=== PATIENT | male | born 1980 | race Caucasian/White ===

== ENCOUNTER 2016-08-29 01:41 | Inpatient (IN) | payer OTHER ==
--- NOTE | 2016-08-29 03:11 | PDOC ---
History of Present Illness - History of Present Illness Initial Comments: 08/29/16 05:58 Patient is a 35 year old male with significant medical hx of psoriasis and recent colostomy bag placement who is presenting to the ED with abdominal pain and decreased colostomy output. The patient complains of epigastic pain, RUQ pain and LUQ pain radiating up into the chest. He reports some nausea and vomiting; the patient has been unable to keep any foods down tonight. Patient reports that at baseline he empties his bowels into the colostomy bag multiple times after seven pm. The patient reports that he did not empty into his colostomy bag tonight. The patient notes that he has been unable to pass gas. The patient came to the ED tonight for concern for obstruction. <Wendi Graves - Last Filed: 08/29/16 05:58> <Liz Dangelo - Last Filed: 08/31/16 01:40> - General Chief Complaint: Chest Pain Stated Complaint: CHEST PAIN Time Seen by Provider: 08/29/16 03:10 Past History <Wendi Graves - Last Filed: 08/29/16 05:58> - Past Medical History Other medical history: denies - Psycho/Social/Smoking Cessation Hx Suicidal Ideation: No Smoking History: Never smoked <Liz Dangelo - Last Filed: 08/31/16 01:40> - Past Medical History Allergies/Adverse Reactions: Allergies Allergy/AdvReac Type Severity Reaction Status Date / Time No Known Allergies Allergy Verified 08/29/16 01:46 Home Medications: Ambulatory Orders Apremilast [Otezla] 1 each PO BID 08/29/16 Review of Systems - Review of Systems Comments:: 08/29/16 06:06 CONSTITUTIONAL: Absent: fever, chills, diaphoresis, generalized weakness, malaise, loss of appetite HEENT: Absent: rhinorrhea, nasal congestion, throat pain, throat swelling, difficulty swallowing, mouth swelling, ear pain, eye pain, visual changes CARDIOVASCULAR: Absent: chest pain, syncope, palpitations, irregular heart rate, lightheadedness , peripheral edema RESPIRATORY: Absent: cough, shortness of breath, dyspnea with exertion, orthopnea, wheezing, stridor, hemoptysis GASTROINTESTINAL: Present: epigastric pain, RUQ pain, LUQ pain, nausea, vomiting Absent: abdominal distension, diarrhea, constipation, melena, hematochezia GENITOURINARY: Absent: dysuria, frequency, urgency, hesitancy, hematuria, flank pain, genital pain MUSCULOSKELETAL: Absent: myalgia, arthralgia, joint swelling SKIN: Absent: rash, itching, pallor HEMATOLOGIC/IMMUNOLOGIC: Absent: easy bleeding, easy bruising, lymphadenopathy, frequent infections ENDOCRINE: Absent: unexplained weight gain, unexplained weight loss, heat intolerance, cold intolerance NEUROLOGIC: Absent: headache, focal weakness or paresthesia, dizziness, unsteady gait, seizure, mental status changes, bladder or bowel incontinence. PSYCHIATRIC: Absent: anxiety, depression, suicidal or homicidal ideation, hallucinations <Wendi Graves - Last Filed: 08/29/16 05:58> *Physical Exam - Vital Signs Last Vital Signs Temp Pulse Resp BP Pulse Ox 98 F 66 18 141/82 100 08/29/16 01:43 08/29/16 01:43 08/29/16 01:43 08/29/16 01:43 08/29/16 01:43 - Physical Exam Comments: 08/29/16 06:07 GENERAL: Well developed, well nourished. Awake and alert. No acute distress. HEENT: Normocephalic, atraumatic. PERRLA, EOMI. No conjunctival pallor. Sclera are non- icteric. Moist mucous membranes. Oropharynx is clear. NECK: Supple. Full ROM. No JVD. Carotid pulses 2+ and symmetric, without bruits. No thyromegaly. No lymphadenopathy. CARDIOVASCULAR: Regular rate and rhythm. No murmurs, rubs, or gallops. Distal pulses are 2+ and symmetric. PULMONARY: No evidence of respiratory distress. Lungs clear to auscultation bilaterally. No wheezing, rales or rhonchi. ABDOMINAL: Empty colostomy bag RLQ. Soft. Non-tender. Non-distended. No rebound or guarding. No organomegaly. Normoactive bowel sounds. MUSCULOSKELETAL: Normal range of motion at all joints. No bony deformities or tenderness. No CVA tenderness. EXTREMITIES: No cyanosis. No clubbing. No edema. No calf tenderness. SKIN: Warm and dry. Normal capillary refill. No rashes. No jaundice. NEUROLOGICAL: Alert, awake, appropriate. Cranial nerves 2-12 intact. Normal speech. Toes are down-going bilaterally. Gait is normal without ataxia. PSYCHIATRIC: Cooperative. Good eye contact. Appropriate mood and affect. <Wendi Graves - Last Filed: 08/29/16 05:58> - Vital Signs Last Vital Signs Temp Pulse Resp BP Pulse Ox 98 F 66 18 141/82 100 08/29/16 01:43 08/29/16 01:43 08/29/16 01:43 08/29/16 01:43 08/29/16 01:43 <Liz Dangelo - Last Filed: 08/31/16 01:40> ED Treatment Course - LABORATORY CBC & Chemistry Diagram: 08/29/16 03:15 08/29/16 03:15 - ADDITIONAL ORDERS Additional order review: Laboratory Results 08/29/16 08/29/16 08/29/16 03:15 03:15 03:15 INR 1.39 H Sodium 143 Potassium 4.0 Chloride 104 Carbon Dioxide 27 Anion Gap 12 BUN 7 D Creatinine 0.8 D Creat Clearance w eGFR > 60 Random Glucose 173 H D Calcium 9.2 Total Bilirubin 1.7 H D AST 302 H D ALT 274 H D Alkaline Phosphatase 177 H D Total Protein 8.5 H Albumin 4.1 Total Amylase 58 Lipase 78 08/29/16 03:15 RBC 5.38 D MCV 91.2 MCHC 32.6 RDW 13.7 MPV 11.5 H Neutrophils % 86.9 H D Lymphocytes % 9.1 D Monocytes % 3.9 Eosinophils % 0.0 D Basophils % 0.1 - Medications Given in the ED: ED Medications Discontinued Medications Generic Name Dose Route Start Last Admin Trade Name Alyce PRN Reason Stop Dose Admin Morphine Sulfate 2 mg 08/29/16 04:19 08/29/16 04:39 Morphine Injection - IVPUSH 08/29/16 04:20 2 mg ONCE ONE Administration Ondansetron HCl 4 mg 08/29/16 04:40 08/29/16 04:40 Zofran Injection IVPUSH 08/29/16 04:41 4 mg NOW ONE Administration <Wendi Graves - Last Filed: 08/29/16 05:58> - LABORATORY CBC & Chemistry Diagram: 08/30/16 06:00 08/30/16 06:00 <Liz Dangelo - Last Filed: 08/31/16 01:40> Medical Decision Making - Medical Decision Making 08/29/16 06:54 PT HAD A LOOP COLOSTOMY PLACED ON 08/03/16, SECONDARY TO A COLO-VESICULAR FISTULA THAT HAD RANDOMLY FORMED; HE HAD PREVIOUSLY BEED IN [facility] WITH NO MEDICAL ISSUES OR DIAGNOSES. NOW HE COMES WITH VOMITING AND EMPTY NON-DRAINING COLOSTOMY BAG. PT IS WORRIED THAT HE MAY HAVE AN OBSTRUCTION. LABS SENT; CXR DONE; CT SCAN OF ABD PELVIS PENDING. PT WILL BE SIGNED OUT TO THE AM DOCTOR WHO WILL CHECK CT SCAN AND REEVALUATE THE PATIENT. <Liz Dangelo - Last Filed: 08/31/16 01:40> *DC/Admit/Observation/Transfer - Attestations Scribe Attestion: 08/29/16 06:08 Documentation prepared by Wendi Graves, acting as medical administrator for Liz Dangelo MD. <Wendi Graves - Last Filed: 08/29/16 05:58> <Liz Dangelo - Last Filed: 08/31/16 01:40> Diagnosis at time of Disposition: Gallstones, Transaminitis Abdominal pain Qualifiers: Abdominal location: right upper quadrant Qualified Code(s): R10.11 - Right upper quadrant pain - Discharge Dispostion Condition at time of disposition: Stable - Referrals
[2016-08-29 03:24] LABS: BASOPHIL 0.1 % (0-2.0); MCH 29.7 pg (25.7-33.7); MCHC 32.6 g/dl (32.0-35.9); MEAN CELL VOLUME 91.2 fl (80-96); MEAN PLT VOLUME 11.5 fl (7.5-11.1); NEUTROPHILS 86.9 % (42.8-82.8); PLATELET COUNT 106 K/MM3 (134-434); RDW 13.7 % (11.9-15.9); WHITE BLOOD COUNT 7.5 K/mm3 (4.0-10.0)
[2016-08-29 03:36] LABS: INR 1.39 (0.82-1.09); PROTHROMBIN TIME (PATIENT) 15.4 SEC (9.98-11.88)
[2016-08-29 03:46] LABS: ALBUMIN 4.1 g/dl (3.4-5.0); ANION GAP 12 (8-16); BILIRUBIN,TOTAL 1.7 mg/dL (0.2-1.0); CALCIUM 9.2 mg/dL (8.5-10.1); CO2 27 mmol/L (21-32); CREATININE 0.8 mg/dL (0.7-1.3); GLUCOSE,RANDOM 173 mg/dL (74-106); SGOT/AST 302 U/L (15-37); SGPT/ALT 274 U/L (12-78); TOT PROT 8.5 g/dl (6.4-8.2)
[2016-08-29 03:47] LABS: ALK PHOS 177 U/L (45-117)
[2016-08-29 04:07] LABS: AMYLASE 58 U/L (25-115)
[2016-08-29] MEDS ORDERED: morphine CARPU-JECT 2 MG/1 ML DISP.SYRIN IVPUSH ONE (04:19)
[2016-08-29] MEDS ORDERED: ONDANSETRON 4 MG/2 ML VIAL ONE (04:35)
[2016-08-29] MEDS ORDERED: morphine CARPU-JECT 2 MG/1 ML DISP.SYRIN ONE (04:35)
[2016-08-29] MEDS ORDERED: ONDANSETRON 4 MG/2 ML VIAL IVPUSH ONE (04:40)
--- NOTE | 2016-08-29 07:35 | PDOC ---
*Physical Exam - Vital Signs Last Vital Signs Temp Pulse Resp BP Pulse Ox 98 F 91 H 18 139/87 98 08/29/16 01:43 08/29/16 07:17 08/29/16 07:17 08/29/16 07:17 08/29/16 07:17 ED Treatment Course - LABORATORY CBC & Chemistry Diagram: 08/29/16 03:15 08/29/16 03:15 - ADDITIONAL ORDERS Additional order review: Laboratory Results 08/29/16 08/29/16 08/29/16 03:15 03:15 03:15 INR 1.39 H Sodium 143 Potassium 4.0 Chloride 104 Carbon Dioxide 27 Anion Gap 12 BUN 7 D Creatinine 0.8 D Creat Clearance w eGFR > 60 Random Glucose 173 H D Calcium 9.2 Total Bilirubin 1.7 H D AST 302 H D ALT 274 H D Alkaline Phosphatase 177 H D Total Protein 8.5 H Albumin 4.1 Total Amylase 58 Lipase 78 08/29/16 03:15 RBC 5.38 D MCV 91.2 MCHC 32.6 RDW 13.7 MPV 11.5 H Neutrophils % 86.9 H D Lymphocytes % 9.1 D Monocytes % 3.9 Eosinophils % 0.0 D Basophils % 0.1 - Medications Given in the ED: ED Medications Discontinued Medications Generic Name Dose Route Start Last Admin Trade Name Alyce PRN Reason Stop Dose Admin Morphine Sulfate 2 mg 08/29/16 04:19 08/29/16 04:39 Morphine Injection - IVPUSH 08/29/16 04:20 2 mg ONCE ONE Administration Ondansetron HCl 4 mg 08/29/16 04:40 08/29/16 04:40 Zofran Injection IVPUSH 08/29/16 04:41 4 mg NOW ONE Administration Medical Decision Making - Medical Decision Making 08/29/16 07:08 Pt endorsed to me by Dr. Dangelo. History of colo-vesicular fistula s/p colostomy, with decreased output since yesterday. Awaiting CT to r/o SBO. 08/29/16 10:35 CT has resulted, no acute findings. Sono was obtained on account of the abnormal LFTs, as they are elevated compared with prior admission. +Gallstones, but no findings of acute addy. Patient is c/o RUQ pain at present. He still notes no stool passage into the bag since last night. I will give additional pain medication and admit to hospitalist. *DC/Admit/Observation/Transfer Diagnosis at time of Disposition: Gallstones, Transaminitis Abdominal pain Qualifiers: Abdominal location: right upper quadrant Qualified Code(s): R10.11 - Right upper quadrant pain - Discharge Dispostion Condition at time of disposition: Stable Admit: Yes - Referrals Referrals: Wes Alexander MD [Primary Care Provider] - - Patient Instructions - Post Discharge Activity
--- NOTE | 2016-08-29 09:11 | EKG ---
Test Reason : Blood Pressure : / mmHG Vent. Rate : 063 BPM Atrial Rate : 063 BPM P-R Int : 124 ms QRS Dur : 096 ms QT Int : 420 ms P-R-T Axes : 004 015 007 degrees QTc Int : 429 ms NORMAL SINUS RHYTHM NORMAL ECG NO PREVIOUS ECGS AVAILABLE Confirmed by RAQUEL JIMÉNEZ MD ([id number]) on 08/29/2016 9:11:12 AM Referred By: Confirmed By:RAQUEL JIMÉNEZ MD
[2016-08-29] MEDS ORDERED: morphine CARPU-JECT 4 MG/1 ML DISP.SYRIN IVPUSH ONE (10:34)
[2016-08-29] MEDS ORDERED: SODIUM CHLORIDE 1,000 ML IV STA (10:34)
[2016-08-29] MEDS ORDERED: morphine CARPU-JECT 4 MG/1 ML DISP.SYRIN ONE (10:56)
--- NOTE | 2016-08-29 12:19 | HP ---
CHIEF COMPLAINT: PCP: Dr. adair HISTORY OF PRESENT ILLNESS: 35 yr old man with psoriasis, colo-vesicular fistula s/p colostomy placement in jul 2016 presents with abdominal pain since yesterday with vomiting x3 since last night. The pain was sudden around 3pm, feelings like "pressure", squeezing , starting in his mid-epigastrium radiating to his back, 9/10 intensity, continuous, nonpositional. was able to eat with usual appetite and without additional pain for dinner around 7pm. pain started prior to vomiting, vomiting was consistent of food eating during dinner, nonbloody. took 2 tylenol without relief. Also colostomy was not draining as per usual routine, usually has to empty several times after dinner. colostomy started to function again in the ED , passing gas and burping. last alcoholic beverage more than one month ago, consisted of beer. past few weeks colostomy functioning without leakage/blockage/blood. recently given trial of otezla by PCP for psoriasis, on day 5 of initial course. ER course was notable for: (1) EKG (2) CT abdomen/pelvis with contrast, chest xray Recent Travel: none PAST MEDICAL HISTORY: Psoriasis PAST SURGICAL HISTORY: diverting colostomy RLQ Jul 2016; Dr. Herrmann Social History: Smoking: none Alcohol: rare, last drink more than one month ago Drugs: denies Family History: mother age 53 - breast ca dx age 49, maternal aunts with breast cancer, grandfather with prostate cancer dx age 80's Allergies No Known Allergies Allergy (Verified 08/29/16 01:46) HOME MEDICATIONS: Medication Instructions Recorded Apremilast [Otezla] 1 each PO BID 08/29/16 REVIEW OF SYSTEMS CONSTITUTIONAL: Absent: fever, chills, diaphoresis, generalized weakness, malaise, loss of appetite, weight change HEENT: Absent: rhinorrhea, nasal congestion, throat pain, throat swelling, difficulty swallowing, mouth swelling, ear pain, eye pain, visual changes CARDIOVASCULAR: Absent: chest pain, syncope, palpitations, irregular heart rate, lightheadedness , peripheral edema RESPIRATORY: Absent: cough, shortness of breath, dyspnea with exertion, orthopnea, wheezing, stridor, hemoptysis GASTROINTESTINAL: Present: abdominal pain, nausea, vomiting Absent: abdominal distension, diarrhea, constipation, melena, hematochezia GENITOURINARY: Absent: dysuria, frequency, urgency, hesitancy, hematuria, flank pain, genital pain MUSCULOSKELETAL: Absent: myalgia, arthralgia, joint swelling, back pain, neck pain SKIN: Absent: rash, itching, pallor HEMATOLOGIC/IMMUNOLOGIC: Absent: easy bleeding, easy bruising, lymphadenopathy, frequent infections ENDOCRINE: Absent: unexplained weight gain, unexplained weight loss, heat intolerance, cold intolerance NEUROLOGIC: Absent: headache, focal weakness or paresthesias, dizziness, unsteady gait, seizure, mental status changes, bladder or bowel incontinence PSYCHIATRIC: Absent: anxiety, depression, suicidal or homicidal ideation, hallucinations. PHYSICAL EXAMINATION Vital Signs - 24 hr 08/29/16 11:00 Temperature 98.8 F Pulse Rate [ 75 Right Radial] Respiratory 16 Rate Blood Pressure 133/74 [Right Arm] O2 Sat by Pulse 97 Oximetry (%) GENERAL: Awake, alert, and fully oriented, in no acute distress. HEAD: Normal with no signs of trauma. EYES: extraocular movements intact, sclera anicteric, conjunctiva clear. No lid lag. EARS, NOSE, THROAT: Ears normal, nares patent, oropharynx clear without exudates. Moist mucous membranes. NECK: Normal range of motion, supple without lymphadenopathy,thick neck LUNGS: Breath sounds equal, clear to auscultation bilaterally. No wheezes, and no crackles. No accessory muscle use. HEART: Regular rate and rhythm, normal S1 and S2 without murmur, rub or gallop. ABDOMEN: obese, soft, nontender, not distended, normoactive bowel sounds, no guarding, no rebound, no masses. garcia's sign/Mcburney's negative/rovsing's negative. RLQ with ostomy bag intact with brown soft nonbloody stool, no surrounding erythema, fluctuatance. mild epigastric tenderness with deep palpation. MUSCULOSKELETAL: Normal range of motion at all joints. No bony deformities or tenderness. No CVA tenderness. UPPER EXTREMITIES: 2+ pulses, warm, well-perfused. No cyanosis. No clubbing. No peripheral edema. LOWER EXTREMITIES: 2+ pulses, warm, well-perfused. No calf tenderness. trace edema in left lower leg. NEUROLOGICAL: Normal speech. PSYCHIATRIC: Cooperative. Good eye contact. Appropriate mood and affect. SKIN: Warm, dry, normal turgor. multiple flat red macules of various sizes throughout body, few with white scaly plaques. ASSESSMENT/PLAN: 35 yr old man with psoriasis and extensive bowel fistulas s/p diverting colostomy presents with abdominal pain and vomiting for one day admitted for further evaluation and w/u of elevated transaminitis. - CT scan without bowel obstruction or pneumoperitoneum #Abdominal pain - likely choledocolithiasis vs s/p passage of stone given evidence of cholelithiasis in u/s and CT scan without evidence of cholecystitis - controlled with morphine in the ED - HIDA scan - MRCP scan - surgical evaluation #Transaminitis, acute - likely elevated due to cholelithiasis - r/o viral hepatitis - repeat LFTs in the am - unlikely that one time dose of tylenol caused elevation in LFTs, however, will avoid tylenol use for now. #[place]-vesicular fistulas with functioning colostomy - chronic, followed by Dr. eHrrmann - last outpt visit 2 weeks ago without issues #Psoriasis - chronic - will hold otezla for now, side effect of otezla is upper abdominal pain and vomiting, however no mention of LFT abnormality. - f/u with PCP as outpatient #Diet - regular, as tolerated. NPO at midnight in anticipation for any testing tomorrow. #DVT prophylaxis - low risk, encourage ambulation. no medical anticoagulation in anticipation of any surgical intervention Visit type - Emergency Visit Emergency Visit: Yes ED Registration Date: 08/29/16 Care time: The patient presented to the Emergency Department on the above date and was hospitalized for further evaluation of their emergent condition. - New Patient This patient is new to me today: Yes Date on this admission: 08/29/16 - Critical Care Critical Care patient: No
[2016-08-29 12:56] VITALS: BMI 41.3
--- NOTE | 2016-08-29 14:07 | PN ---
Teaching Attending Note Name of Resident: Amita Clark ATTENDING PHYSICIAN STATEMENT I saw and evaluated the patient. I reviewed the resident's note and discussed the case with the resident. I agree with the resident's findings and plan as documented. SUBJECTIVE: This is a 35-year-old man with a history of psoriasis, colovesicular fistula, diverting loop colostomy 08/03, who comes to the ER complaining of abdominal pain, mostly epigastric and radiating to his back, that started yesterday around 3 pm. After dinner, around 7 pm, he developed nausea and began vomiting undigested food. He denies fever, chills. He says he has had no colostomy output since around 3 pm yesterday. OBJECTIVE: Vital Signs Period Temp Pulse Resp BP Sys/Pascual Pulse Ox Last 24 Hr 98 F-98.8 F 66-91 16-18 133-141/74-87 97-100 HEART: S1 S2, RRR. LUNGS: Clear. ABDOMEN: Obese, soft, non-distended, (+) epigastric tenderness, normal BS. Right -sided colostomy with liquid brown stool in bag. EXTREMITIES: No edema. Laboratory Tests 08/29/16 08/29/16 08/29/16 03:15 03:15 03:15 WBC 7.5 RBC 5.38 D Hgb 16.0 D Hct 49.0 D MCV 91.2 MCHC 32.6 RDW 13.7 Plt Count 106 L MPV 11.5 H Neutrophils % 86.9 H D Lymphocytes % 9.1 D Monocytes % 3.9 Eosinophils % 0.0 D Basophils % 0.1 INR 1.39 H Sodium 143 Potassium 4.0 Chloride 104 Carbon Dioxide 27 Anion Gap 12 BUN 7 D Creatinine 0.8 D Creat Clearance w eGFR > 60 Random Glucose 173 H D Calcium 9.2 Total Bilirubin 1.7 H D AST 302 H D ALT 274 H D Alkaline Phosphatase 177 H D Total Protein 8.5 H Albumin 4.1 Total Amylase Lipase 08/29/16 03:15 WBC RBC Hgb Hct MCV MCHC RDW Plt Count MPV Neutrophils % Lymphocytes % Monocytes % Eosinophils % Basophils % INR Sodium Potassium Chloride Carbon Dioxide Anion Gap BUN Creatinine Creat Clearance w eGFR Random Glucose Calcium Total Bilirubin AST ALT Alkaline Phosphatase Total Protein Albumin Total Amylase 58 Lipase 78 ASSESSMENT AND PLAN: This is a 35-year-old man with a history of psoriasis, colovesicular fistula, diverting loop colostomy 08/03, who presented to the ER with abdominal pain, nausea and vomiting since yesterday. 1. Epigastric pain with nausea, vomiting, abnormal AST/ALT/alk phos - CT shows nodular liver, gallbladder sludge, no evidence of cholecystitis - US shows cholelithiasis, normal ducts, hepatosplenomegaly, fatty liver - Doubt acute cholecystitis - Possible choledocholithiasis, passed gallstone - NPO - IV fluid - Monitor LFTs - MRCP - Surgery consult 2. Colovesicular fistula, s/p diverting loop colostomy 08/03 - Patient reports there was no output - No evidence of obstruction on CT - Output noted in colostomy bag
--- NOTE | 2016-08-29 14:52 | CONSULT ---
Addendum entered and electronically signed by Kev Willis PA 08/30/16 12:30: MRCP 08/29/16 Cholelithiasis without evidence of cholecystitis. No intrahepatic or billiary ductal dilation. No choledocholithiasis. Original Note: <Kev Willis - Last Filed: 08/29/16 15:12> Consultation: REQUESTING PROVIDER: David Herrmann MD (General Surgeon) CONSULT REQUEST: We have been asked to surgically evaluate this patient for abd pain. HISTORY OF PRESENT ILLNESS: Called to evaluate 35 yo male well know to surgical service. Patient's h/o significant for colo-vesicula fistula. Underwent diagnostic laparoscopy which resulted in diverting loop colostomy 08/03/16. Patient presents to [facility] ED w/ c/o abd pain and vomiting x3 last night. Started approx 30 mins after eating food. Acute in onset. Located in his (points too) mid-epigastric region and radiates to his back. Per patient, pain and nausea subsided on own. States he was able to eat with usual appetite and without additional pain for dinner around 7pm. Soon after dinner though, vomiting resumed. Tried to alleviate pain with Tylenol without relief. Currently, patient is resting comfortably without complaint. States his colostomy wasn't functioning for the past 24 hours but has really started to produce while in the ED. In the ED patient is noted to have abnormal LFTs (compared to his last admission). Denies CP, palpiations, pulsatile masses, RAMIREZ, SOB, melena, hematochazia, dysuria, flank pain or trauma. PMHx: Colovesicula fistula, Psoriasis PSHx: Diverting transverse loop colostomy 08/03 Home Meds: Otezla Allergy: NKDA ROS: CONSTITUTIONAL: SEE ABOVE. Absent: malaise, weight change CARDIOVASCULAR: SEE ABOVE. Absent: syncope, irregular heart rate, lightheadedness RESPIRATORY: Absent: orthopnea, wheezing, stridor, hemoptysis GASTROINTESTINAL: SEE ABOVE. GENITOURINARY: SEE ABOVE. Absent: frequency, urgency, hesitancy, genital pain MUSCULOSKELETAL: Absent: myalgia, arthralgia, joint swelling, back pain, neck pain SKIN: Absent: rash, itching, pallor HEMATOLOGIC/IMMUNOLOGIC: Absent: easy bleeding, easy bruising, lymphadenopathy, frequent infections NEUROLOGIC: Absent: headache, focal weakness or paresthesias, dizziness, unsteady gait, seizure, mental status changes PSYCHIATRIC: Absent: anxiety, depression, suicidal or homicidal ideation, hallucinations. Last Vital Signs Temp Pulse Resp BP Pulse Ox 98.8 F 75 16 133/74 98 08/29/16 11:00 08/29/16 11:00 08/29/16 11:00 08/29/16 11:00 08/29/16 12:15 PE GENERAL: Awake, alert, oriented, nad. HEAD: NC. AT. EYES: Sclera anicteric, conjunctiva clear. NECK: Normal ROM, supple without lymphadenopathy, JVD, or masses. LUNGS: CTA b/l anteriorly HEART: RRR ABD: Soft, NT, ND, normoactive bowel sounds, no guarding, no rebound. Hepatomegaly on palpation. Negativ Mardaiaga's sign. Negative rebound/guarding. Ostomy RLQ (pink / protruding / producing) UE: 2+ pulses, warm, well-perfused. No cyanosis. Cap refill <2 seconds. No peripheral edema. LE: 2+ pulses, warm, well-perfused. No calf tenderness. No peripheral edema. PSYCH: Cooperative. Good eye contact. Appropriate mood and affect. SKIN: Warm, dry, normal turgor, no rashes or lesions noted. LABS: CBC, BMP 08/29/16 03:15 08/29/16 03:15 INR, PTT INR 1.39 (0.82-1.09) H 08/29/16 03:15 Hepatic Panel Total Bilirubin 1.7 mg/dL (0.2-1.0) H D 08/29/16 03:15 AST 302 U/L (15-37) H D 08/29/16 03:15 ALT 274 U/L (12-78) H D 08/29/16 03:15 Alkaline Phosphatase 177 U/L (45-117) H D 08/29/16 03:15 Albumin 4.1 g/dl (3.4-5.0) 08/29/16 03:15 Amylase / Lipase 08/29/16 03:15 Total Amylase [address] Scan: No acute findings. US: +Gallstones, but no findings of acute addy. Problem List - Problems (1) Transaminitis Assessment/Plan: Recommend GI evaluation HIDA Scan Monitor LFTs Cont medical management at this time General Surgery to continue following patient at this time Above plan discussed with Dr. Herrmann and agrees. Code(s): R74.0 - NONSPEC ELEV OF LEVELS OF TRANSAMNS & LACTIC ACID DEHYDRGNSE (2) Gallstones Code(s): K80.20 - CALCULUS OF GALLBLADDER W/O CHOLECYSTITIS W/O OBSTRUCTION (3) [place]-vesical fistula Code(s): N32.1 - VESICOINTESTINAL FISTULA Visit type - Case Type Case Type: ED Admission - Emergency Emergency Visit: Yes ED Registration Date: 08/29/16 Care time: The patient presented to the Emergency Department on the above date and was hospitalized for further evaluation of their emergent condition. - New patient This patient is new to me today: Yes Date on this admission: 08/29/16 <David Herrmann - Last Filed: 11/21/16 06:38> Consultation: REQUESTING PROVIDER: CONSULT REQUEST: We have been asked to surgically evaluate this patient for ( specify). HISTORY OF PRESENT ILLNESS: REVIEW OF SYSTEMS: CONSTITUTIONAL: Absent: fever, chills, diaphoresis, generalized weakness, malaise, loss of appetite, weight change CARDIOVASCULAR: Absent: chest pain, syncope, palpitations, irregular heart rate, lightheadedness , peripheral edema RESPIRATORY: Absent: cough, shortness of breath, dyspnea with exertion, orthopnea, wheezing, stridor, hemoptysis GASTROINTESTINAL: Absent: abdominal pain, abdominal distension, nausea, vomiting, diarrhea, constipation, melena, hematochezia GENITOURINARY: Absent: dysuria, frequency, urgency, hesitancy, hematuria, flank pain, genital pain MUSCULOSKELETAL: Absent: myalgia, arthralgia, joint swelling, back pain, neck pain SKIN: Absent: rash, itching, pallor HEMATOLOGIC/IMMUNOLOGIC: Absent: easy bleeding, easy bruising, lymphadenopathy, frequent infections NEUROLOGIC: Absent: headache, focal weakness or paresthesias, dizziness, unsteady gait, seizure, mental status changes, bladder or bowel incontinence PSYCHIATRIC: Absent: anxiety, depression, suicidal or homicidal ideation, hallucinations. PHYSICAL EXAMINATION Vital Signs Temperature 98.0 F 08/30/16 10:00 Pulse Rate 61 08/30/16 10:00 Respiratory Rate 18 08/30/16 10:00 Blood Pressure 114/68 08/30/16 10:00 O2 Sat by Pulse Oximetry (%) 97 08/30/16 09:00 GENERAL: Awake, alert, and fully oriented, in no acute distress. HEAD: Normal with no signs of trauma. EYES: Pupils equal, round and reactive to light, sclera anicteric, conjunctiva clear. NECK: Normal range of motion, supple without lymphadenopathy, JVD, or masses. LUNGS: Breath sounds equal, clear to auscultation bilaterally. No wheezes, and no crackles. No accessory muscle use. HEART: Regular rate and rhythm, normal S1 and S2 without murmur, rub or gallop. ABDOMEN: Soft, nontender, not distended, normoactive bowel sounds, no guarding, no rebound, no masses. No hepatomegaly or splenomegaly. MUSCULOSKELETAL: Normal range of motion at all joints. No bony deformities or tenderness. No CVA tenderness. UPPER EXTREMITIES: 2+ pulses, warm, well-perfused. No cyanosis. Cap refill <2 seconds. No peripheral edema. LOWER EXTREMITIES: 2+ pulses, warm, well-perfused. No calf tenderness. No peripheral edema. NEUROLOGICAL: Normal speech, gait not observed. PSYCH: Cooperative. Good eye contact. Appropriate mood and affect. SKIN: Warm, dry, normal turgor, no rashes or lesions noted. LABS: Laboratory Results - last 24 hr 08/30/16 08/30/16 08/30/16 01:20 06:00 06:00 WBC 5.1 D RBC 4.63 Hgb 14.2 D Hct 42.5 MCV 91.8 MCHC 33.5 RDW 14.1 Plt Count 94 L MPV 11.3 H Neutrophils % 60.5 D Lymphocytes % 27.5 D Monocytes % 8.4 D Eosinophils % 3.2 D Basophils % 0.4 D Sodium 143 Potassium 3.4 L Chloride 107 Carbon Dioxide 27 Anion Gap 9 BUN 9 D Creatinine 0.6 L D Random Glucose 88 D Calcium 8.7 Total Bilirubin 2.0 H Direct Bilirubin 1.1 H AST 301 H ALT 392 H D Alkaline Phosphatase 204 H Total Protein 7.5 Albumin 3.5 Urine Color [place] Urine Appearance Slcloudy Urine pH 7.0 D Ur Specific [place] 1.027 Urine Protein Negative Urine Glucose (UA) 1+ H Urine Ketones Negative Urine Blood Negative Urine Nitrite Negative Urine Bilirubin Negative Urine Urobilinogen 2.0 e.u/dl Ur Leukocyte Esterase Negative Problem List - Problems (1) Abdominal pain Assessment/Plan: Surgery Attending Patient seen and examined. Imaging studies reviewed. Patient is well-known to undersigned with colo-vesical fistula s/p diverting colostomy now with symptomatic cholelithiasis. Patient is no longer in pain and abdomen is soft and tender No intervention necessary at this time. Patient needs completion colonoscopy and cystoscopy prior to colon resection. Will add cholecystectomy at the time of above planned surgery. May resume diet and D/C home. F/U as outpatient. Code(s): R10.9 - UNSPECIFIED ABDOMINAL PAIN Qualifiers: Qualified Code(s): R10.11 - Right upper quadrant pain
[2016-08-30] MEDS ORDERED: IBUPROFEN 800 MG/8 ML IJ IVPB ONE (01:18)
[2016-08-30 01:48] LABS: URINE APPEARANCE SLCLOUDY; URINE BILIRUBIN NEGATIVE (NEGATIVE); URINE BLOOD NEGATIVE (NEGATIVE); URINE COLOR AMBER; URINE GLUCOSE (UA) 1+ (NEGATIVE); URINE KETONE NEGATIVE (NEGATIVE); URINE LEUK ESTERASE NEGATIVE (NEGATIVE); URINE NITRITE NEGATIVE (NEGATIVE); URINE PROTEIN NEGATIVE (NEGATIVE); URINE UROBILINOGEN 2.0 E.U/dl E.U./dl (0.2-1.0)
[2016-08-30 07:49] LABS: ALBUMIN 3.5 g/dl (3.4-5.0); BILIRUBIN,DIRECT 1.1 mg/dL (0.0-0.2); CALCIUM 8.7 mg/dL (8.5-10.1); CREATININE 0.6 mg/dL (0.7-1.3)
[2016-08-30 07:52] LABS: TOT PROT 7.5 g/dl (6.4-8.2)
[2016-08-30 08:22] LABS: BASOPHIL 0.4 % (0-2.0); EOSINOPHIL 3.2 % (0-4.5); MCH 30.8 pg (25.7-33.7); MCHC 33.5 g/dl (32.0-35.9); MEAN CELL VOLUME 91.8 fl (80-96); MEAN PLT VOLUME 11.3 fl (7.5-11.1); NEUTROPHILS 60.5 % (42.8-82.8); PLATELET COUNT 94 K/MM3 (134-434); RDW 14.1 % (11.9-15.9); WHITE BLOOD COUNT 5.1 K/mm3 (4.0-10.0)
--- NOTE | 2016-08-30 14:03 | PN ---
Physical Exam: SUBJECTIVE: Patient seen and examined feels well. denies abdominal pain. OBJECTIVE: Vital Signs Period Temp Pulse Resp BP Sys/Pascual Pulse Ox Last 24 Hr 98 F-98.8 F 60-74 18-20 102-129/58-71 97-97 GENERAL: The patient is awake, alert, and fully oriented, in no acute distress. HEAD: Normal with no signs of trauma. EYES: extraocular movements intact, sclera anicteric, conjunctiva clear. No ptosis. ENT: Ears normal, nares patent, oropharynx clear without exudates, moist mucous membranes. NECK: Trachea midline, full range of motion, supple. LUNGS: Breath sounds equal, clear to auscultation bilaterally, no wheezes, no crackles, no accessory muscle use. HEART: Regular rate and rhythm, S1, S2 without murmur, rub or gallop. ABDOMEN: Soft, nontender, nondistended, normoactive bowel sounds, mild tenderness in epigastrium. colostomy in RLQ functioning. EXTREMITIES: 2+ pulses, warm, well-perfused, no edema. NEUROLOGICAL: Normal speech, gait not observed. PSYCH: Normal mood, normal affect. SKIN: Warm, dry, normal turgor, multiple flat red macules of various sizes throughout body, few with white scaly plaques. Laboratory Results - last 24 hr 08/30/16 08/30/16 08/30/16 01:20 06:00 06:00 WBC 5.1 D RBC 4.63 Hgb 14.2 D Hct 42.5 MCV 91.8 MCHC 33.5 RDW 14.1 Plt Count 94 L MPV 11.3 H Neutrophils % 60.5 D Lymphocytes % 27.5 D Monocytes % 8.4 D Eosinophils % 3.2 D Basophils % 0.4 D Sodium 143 Potassium 3.4 L Chloride 107 Carbon Dioxide 27 Anion Gap 9 BUN 9 D Creatinine 0.6 L D Random Glucose 88 D Calcium 8.7 Total Bilirubin 2.0 H Direct Bilirubin 1.1 H AST 301 H ALT 392 H D Alkaline Phosphatase 204 H Total Protein 7.5 Albumin 3.5 Urine Color [place] Urine Appearance Slcloudy Urine pH 7.0 D Ur Specific [place] 1.027 Urine Protein Negative Urine Glucose (UA) 1+ H Urine Ketones Negative Urine Blood Negative Urine Nitrite Negative Urine Bilirubin Negative Urine Urobilinogen 2.0 e.u/dl Ur Leukocyte Esterase Negative 1/16 MRCP: Cholelithiasis with no MRI evidence of cholecystitis. No definite choledocholithiasis is seen. Minimal irregularity seen in the distal CBD which could be secondary to respiration/motion however very tiny stone cannot be completely excluded. No CBD or intrahepatic biliary ductal dilatation seen. Correlate with patient's symptomatology, LFTs and bilirubin. Mild nodular hepatic contour with loss of hepatic signal on out of phase imaging suggestive of fatty infiltration or hepatocellular disease with questionable element of early cirrhosis. Correlate with clinical history and LFTs. 2.2 cm right hepatic lobe hemangioma. Subcentimeter renal cysts. Right-sided abdominal colostomy. [place] subcentimeter retroperitoneal lymph nodes could be reactive to the known history of bowel fistula. Few prominent ebony hepatis and lesser sac lymph nodes measuring up to 1.5 cm could be reactive to the hepatocellular/biliary process described above. ASSESSMENT/PLAN: 35 yr old man with psoriasis and extensive bowel fistulas s/p diverting colostomy presents with abdominal pain and vomiting for one day admitted for further evaluation and w/u of elevated transaminitis. - CT scan without bowel obstruction or pneumoperitoneum - MRCP: Cholelithiasis with no MRI evidence of cholecystitis. - HIDA scan pending final results #Abdominal pain - likely choledocolithiasis vs s/p passage of stone given evidence of cholelithiasis in u/s, MRCP, and CT scan without evidence of cholecystitis - improved - surgical evaluation, Dr. Herrmann #Transaminitis, acute - likely elevated due to choledocolithiasis - r/o viral hepatitis, hepatitis panel pending - repeat LFTs in the am, uptrending - unlikely that one time dose of tylenol caused elevation in LFTs, however, will avoid tylenol use for now. #[place]-vesicular fistulas with functioning colostomy - chronic, followed by Dr. Herrmann - last outpt visit 2 weeks ago without issues #Psoriasis - chronic, stable. - will hold otezla for now, side effect of otezla is upper abdominal pain and vomiting, however no mention of LFT abnormality. - f/u with PCP as outpatient #Diet - advanced to liquid diet #DVT prophylaxis - low risk, encourage ambulation. no medical anticoagulation in anticipation of any surgical intervention. Visit type - Emergency Visit Emergency Visit: No - New Patient This patient is new to me today: No - Critical Care Critical Care patient: No - Discharge Referral Referred to [facility] Med P.C.: No
--- NOTE | 2016-08-30 15:24 | PN ---
Progress Note (short form) - Note Progress Note: Surgery Attending Patient seen and examined. Imaging studies reviewed. Patient is well-known to undersigned with colo-vesical fistula s/p diverting colostomy now with symptomatic cholelithiasis. Patient is no longer in pain and abdomen is soft and tender No intervention necessary at this time. Patient needs completion colonoscopy and cystoscopy prior to colon resection. Will add cholecystectomy at the time of above planned surgery. May resume diet and D/C home. F/U as outpatient. Problem List - Problems (1) Abdominal pain Assessment/Plan: Surgery Attending Patient seen and examined. Imaging studies reviewed. Patient is well-known to undersigned with colo-vesical fistula s/p diverting colostomy now with symptomatic cholelithiasis. Patient is no longer in pain and abdomen is soft and tender No intervention necessary at this time. Patient needs completion colonoscopy and cystoscopy prior to colon resection. Will add cholecystectomy at the time of above planned surgery. May resume diet and D/C home. F/U as outpatient. Code(s): R10.9 - UNSPECIFIED ABDOMINAL PAIN Qualifiers: Qualified Code(s): R10.11 - Right upper quadrant pain
--- NOTE | 2016-08-30 19:10 | PN ---
Teaching Attending Note Name of Resident: Amita Clark ATTENDING PHYSICIAN STATEMENT I saw and evaluated the patient. I reviewed the resident's note and discussed the case with the resident. I agree with the resident's findings and plan as documented. SUBJECTIVE: no fever or chills. no abd pain , has no N/V . OBJECTIVE: NAD , AAOx3 CV: RRR Lungs : CTAB ext: no edema SKin : scaly rash on skin Abd:soft, ND , TTP in epigastric area , no rebound tenderness or guarding . Neg Maradiaga's sign, NL BS . ASSESSMENT AND PLAN: 35 y/o man with H/O colo-vesicuar fistulas, s/p partial colectomy and diverting colostomy, UTI , who presented with ABd pain , N/V . 1- ABD pain , N/V /transaminitis: LFTS have a cholestatic picture with worsening this morning . This indicated an obstructing stone in CBD . clinical picture does not suggest cholecystitis and HIDA shows visualization of the gall bladder. - Patient will need ERCP - Spoke to Dr. Mcnair , make Pt NPO after MN for ERCP possibly tomorrow - monitor LFTS - need to d/w Sx timing of cholecystectomy 2- h/l Coloversicular fistula , s/p diverting colostomy and partial colectomy . monitor Bx 07/29/16 showed no inflammation or malignancy f/u as out pt Dispo : HLOC
[2016-08-31 07:37] LABS: BASOPHIL 0.4 % (0-2.0); EOSINOPHIL 3.8 % (0-4.5); MEAN CELL VOLUME 91.3 fl (80-96); MEAN PLT VOLUME 11.4 fl (7.5-11.1); NEUTROPHILS 54.2 % (42.8-82.8); PLATELET COUNT 90 K/MM3 (134-434); RDW 13.7 % (11.9-15.9); WHITE BLOOD COUNT 5.3 K/mm3 (4.0-10.0)
[2016-08-31 08:03] LABS: ALBUMIN 3.5 g/dl (3.4-5.0); BILIRUBIN,DIRECT 0.3 mg/dL (0.0-0.2); CALCIUM 9.1 mg/dL (8.5-10.1); CREATININE 0.6 mg/dL (0.7-1.3); TOT PROT 7.3 g/dl (6.4-8.2)
--- NOTE | 2016-08-31 08:56 | PN ---
Teaching Attending Note Name of Resident: Amita Clark ATTENDING PHYSICIAN STATEMENT I saw and evaluated the patient. I reviewed the resident's note and discussed the case with the resident. I agree with the resident's findings and plan as documented. SUBJECTIVE: Patient is comfortable with no acute distress, no nausea or vomiting, no abdominal pain. No headache, no shortness of breath. OBJECTIVE: Vital Signs Temperature 97.8 F 08/31/16 04:52 Pulse Rate 70 08/31/16 04:52 Respiratory Rate 20 08/31/16 04:52 Blood Pressure 118/68 08/31/16 04:52 O2 Sat by Pulse Oximetry (%) 97 08/30/16 09:00 GENERAL: The patient is awake, alert, and fully oriented, in no acute distress. HEAD: Normal with no signs of trauma. EYES: extraocular movements intact, sclera anicteric, conjunctiva clear. ENT: Ears normal, oropharynx clear , moist mucous membranes. NECK: Trachea midline, full range of motion, supple. LUNGS: Breath sounds equal, clear to auscultation bilaterally, no wheezes, no crackles, no accessory muscle use. HEART: Regular rate and rhythm, S1, S2 without murmur, no rub or gallop. ABDOMEN: Soft, nontender, nondistended, normoactive bowel sounds, colostomy in RLQ functioning. EXTREMITIES: 2+ pulses, warm, well-perfused, no edema. NEUROLOGICAL: Normal speech, gait normal PSYCH: Normal mood, normal affect. SKIN: Warm, dry, normal turgor, scaly rash on the skin. CBCD WBC 5.3 K/mm3 (4.0-10.0) 08/31/16 05:35 RBC 4.68 M/mm3 (4.00-5.60) 08/31/16 05:35 Hgb 14.5 GM/dL (11.7-16.9) 08/31/16 05:35 Hct 42.8 % (35.4-49) 08/31/16 05:35 MCV 91.3 fl (80-96) 08/31/16 05:35 MCHC 34.0 g/dl (32.0-35.9) 08/31/16 05:35 RDW 13.7 % (11.9-15.9) 08/31/16 05:35 Plt Count 90 K/MM3 (134-434) L 08/31/16 05:35 MPV 11.4 fl (7.5-11.1) H 08/31/16 05:35 CMP Sodium 139 mmol/L (136-145) 08/31/16 05:35 Potassium 3.5 mmol/L (3.5-5.1) 08/31/16 05:35 Chloride 107 mmol/L (98-107) 08/31/16 05:35 Carbon Dioxide 25 mmol/L (21-32) 08/31/16 05:35 Anion Gap 7 (8-16) L 08/31/16 05:35 BUN 10 mg/dL (7-18) 08/31/16 05:35 Creatinine 0.6 mg/dL (0.7-1.3) L 08/31/16 05:35 Creat Clearance w eGFR > 60 (>60) 08/29/16 03:15 Random Glucose 79 mg/dL (74-106) 08/31/16 05:35 Calcium 9.1 mg/dL (8.5-10.1) 08/31/16 05:35 Total Bilirubin 1.0 mg/dL (0.2-1.0) D 08/31/16 05:35 AST 134 U/L (15-37) H D 08/31/16 05:35 ALT 307 U/L (12-78) H D 08/31/16 05:35 Alkaline Phosphatase 190 U/L (45-117) H 08/31/16 05:35 Total Protein 7.3 g/dl (6.4-8.2) 08/31/16 05:35 Albumin 3.5 g/dl (3.4-5.0) 08/31/16 05:35 Medication Instructions Recorded Apremilast [Otezla] 1 each PO BID 08/29/16 ASSESSMENT AND PLAN: 35 y/o man with H/O coloversicular fistulas, s/p partial colectomy and diverting colostomy, UTI , who presented with ABd pain , N/V . # s/p acute ABD pain with elevated LFTs ; improving the level , possible passed the stone. ERCP is cancelled by repeat LFTs in Am. # h/l Coloversicular fistula , s/p diverting colostomy and partial colectomy . Bx 12/16/16 showed no inflammation or malignancy f/u as out pt
--- NOTE | 2016-08-31 09:03 | PN ---
Physical Exam: SUBJECTIVE: Patient seen and examined feels well. no complaints. Abdominal pain resolved. colostomy functioning without blockage and usual rate. was for ERCP, however with down trending LFT's, no longer need for ERCP. likely he has passed the stone. OBJECTIVE: Vital Signs Period Temp Pulse Resp BP Sys/Pascual Pulse Ox Last 24 Hr 97.7 F-98.3 F 58-82 18-20 105-118/54-68 GENERAL: The patient is awake, alert, and fully oriented, in no acute distress. HEAD: Normal with no signs of trauma. EYES: extraocular movements intact, sclera anicteric, conjunctiva clear. ENT: Ears normal, nares patent, oropharynx clear without exudates, moist mucous membranes. NECK: Trachea midline, full range of motion, supple. LUNGS: Breath sounds equal, clear to auscultation bilaterally, no wheezes, no crackles, no accessory muscle use. HEART: Regular rate and rhythm, S1, S2 without murmur, rub or gallop. ABDOMEN: Soft, nontender, nondistended, normoactive bowel sounds, colostomy in RLQ functioning. EXTREMITIES: 2+ pulses, warm, well-perfused, no edema. NEUROLOGICAL: Normal speech, gait normal PSYCH: Normal mood, normal affect. SKIN: Warm, dry, normal turgor, multiple flat red macules of various sizes throughout body, few with white scaly plaques. Laboratory Results - last 24 hr 08/31/16 08/31/16 05:35 05:35 WBC 5.3 RBC 4.68 Hgb 14.5 Hct 42.8 MCV 91.3 MCHC 34.0 RDW 13.7 Plt Count 90 L MPV 11.4 H Neutrophils % 54.2 Lymphocytes % 33.2 D Monocytes % 8.4 Eosinophils % 3.8 Basophils % 0.4 Sodium 139 Potassium 3.5 Chloride 107 Carbon Dioxide 25 Anion Gap 7 L BUN 10 Creatinine 0.6 L Random Glucose 79 Calcium 9.1 Total Bilirubin 1.0 D Direct Bilirubin 0.3 H D AST 134 H D ALT 307 H D Alkaline Phosphatase 190 H Total Protein 7.3 Albumin 3.5 ASSESSMENT/PLAN: 35 yr old man with psoriasis and extensive bowel fistulas s/p diverting colostomy presents with abdominal pain and vomiting for one day admitted for further evaluation and w/u of elevated transaminitis. - CT scan without bowel obstruction or pneumoperitoneum - MRCP: Cholelithiasis with no MRI evidence of cholecystitis. - HIDA scan pending final results #Abdominal pain -improved - will advance diet tonight and reasses in the AM for discharge - assessed by Dr. Maki, given improved LFTs, sushil has passed the stone and no emergent need for ERCP #Transaminitis, acute - likely elevated due to choledocolithiasis - hepatitis A Ab pos, Heb B nonreactive, will rec f/u with PCP - repeat LFTs in the am, downtrending - unlikely that one time dose of tylenol caused elevation in LFTs, however, will avoid tylenol use for now. #[place]-vesicular fistulas with functioning colostomy - chronic, followed by Dr. Herrmann - last outpt visit 2 weeks ago without issues -f/u p-anca/c-anca and cerevicea panel #Psoriasis - chronic, stable. - will hold otezla for now, side effect of otezla is upper abdominal pain and vomiting, however no mention of LFT abnormality. - f/u with PCP as outpatient #Diet - advanced to regular diet #DVT prophylaxis - low risk, encourage ambulation. no medical anticoagulation needed at this time. #Dispo: discharge tomorrow if LFTs improve and diet tolerated well Visit type - Emergency Visit Emergency Visit: No - New Patient This patient is new to me today: No - Critical Care Critical Care patient: No - Discharge Referral Referred to [facility] Med P.C.: No
[2016-08-31] MEDS ORDERED: SODIUM CHLORIDE 1,000 ML IV STA (11:25)
[2016-08-31] MEDS: URSODIOL 300 MG CAPSULE PO SCH ×2 (12:53→21:51)
--- NOTE | 2016-08-31 14:40 | CONSULT ---
Consult Consult Specialty:: GI Referred by:: hospitalist - History of Present Illness History of Present Illness: 35 y/o male with PMH of diverting colostomy for a complex fistula of unclear etiology involving the sigmoid colon, attempted colonoscopy was admitted with 10 /10 ruq pain associated with cholelithiasis and elevated LFTs. Today abdominal pain resolved. MRCP,ct and Abdominal ultrasound revealed normal CBD. - Past Medical History Gastrointestinal: Yes: Inflamatory Bowel Disease Renal/: Yes: UTI Dermatology: Yes: Psoriasis - Smoking History Smoking history: Never smoked Home Medications - Allergies Allergies/Adverse Reactions: Allergies Allergy/AdvReac Type Severity Reaction Status Date / Time No Known Allergies Allergy Verified 08/29/16 01:46 - Home Medications Home Medications: Ambulatory Orders Apremilast [Otezla] 1 each PO BID 08/29/16 Physical Exam-GI Vital Signs: Vital Signs Temperature 98.8 F 08/31/16 14:11 Pulse Rate 82 08/31/16 14:11 Respiratory Rate 18 08/31/16 14:11 Blood Pressure 126/73 08/31/16 14:11 O2 Sat by Pulse Oximetry (%) 97 08/30/16 09:00 Constitutional: Yes: Well Nourished Eyes: Yes: Conjunctiva Clear HENT: Yes: Atraumatic Neck: Yes: Supple Cardiovascular: Yes: Regular Rate and Rhythm Respiratory: Yes: CTA Bilaterally ...Palpate: Yes: Soft. No: Firm/Rigid, Guarding, Hepatomegaly, Mass, Pulsatile Mass, Splenomegaly, Tenderness Labs: CBC, BMP 08/31/16 05:35 08/31/16 05:35 INR, PTT INR 1.39 (0.82-1.09) H 08/29/16 03:15 Assessment/Plan A> Cholelithiasis--downward trend of the LFTs most likely the patient passed a stone R> actigall 300mg bid cea level, S. cereviscea ab IgG and IgA advance diet made aware to ff-up in clinic
[2016-09-01 00:06] LABS: HEP B SURFACE AB Non Reactive (.)
[2016-09-01 07:44] LABS: ALBUMIN 3.6 g/dl (3.4-5.0); BILIRUBIN,DIRECT 0.3 mg/dL (0.0-0.2); BILIRUBIN,TOTAL 1.1 mg/dL (0.2-1.0); TOT PROT 7.6 g/dl (6.4-8.2)
--- NOTE | 2016-09-01 09:02 | PN ---
Teaching Attending Note Name of Resident: Amita Clark ATTENDING PHYSICIAN STATEMENT I saw and evaluated the patient. I reviewed the resident's note and discussed the case with the resident. I agree with the resident's findings and plan as documented. SUBJECTIVE: Patient is comfortable with no acute distress. No abdominal pain, no shortness of breath. No fever or chills. OBJECTIVE: Vital Signs Temperature 97.8 F 09/01/16 05:21 Pulse Rate 63 09/01/16 05:21 Respiratory Rate 18 09/01/16 05:21 Blood Pressure 112/72 09/01/16 05:21 O2 Sat by Pulse Oximetry (%) 97 08/31/16 21:00 GENERAL: The patient is awake, alert, and fully oriented, in no acute distress. HEAD: Normal with no signs of trauma. EYES: extraocular movements intact, sclera anicteric, conjunctiva clear. ENT: Ears normal, oropharynx clear , moist mucous membranes. NECK: Trachea midline, full range of motion, supple. LUNGS: Breath sounds equal, clear to auscultation bilaterally, no wheezes, no crackles, no accessory muscle use. HEART: Regular rate and rhythm, S1, S2 without murmur, no rub or gallop. ABDOMEN: Soft, nontender, nondistended, normoactive bowel sounds, colostomy in RLQ functioning. no abdominal pain. EXTREMITIES: 2+ pulses, warm, well-perfused, no edema. NEUROLOGICAL: Normal speech, gait normal PSYCH: Normal mood, normal affect. SKIN: Warm, dry, normal turgor, scaly rash on the skin. CBCD WBC 5.3 K/mm3 (4.0-10.0) 08/31/16 05:35 RBC 4.68 M/mm3 (4.00-5.60) 08/31/16 05:35 Hgb 14.5 GM/dL (11.7-16.9) 08/31/16 05:35 Hct 42.8 % (35.4-49) 08/31/16 05:35 MCV 91.3 fl (80-96) 08/31/16 05:35 MCHC 34.0 g/dl (32.0-35.9) 08/31/16 05:35 RDW 13.7 % (11.9-15.9) 08/31/16 05:35 Plt Count 90 K/MM3 (134-434) L 08/31/16 05:35 MPV 11.4 fl (7.5-11.1) H 08/31/16 05:35 CMP Sodium 139 mmol/L (136-145) 08/31/16 05:35 Potassium 3.5 mmol/L (3.5-5.1) 08/31/16 05:35 Chloride 107 mmol/L (98-107) 08/31/16 05:35 Carbon Dioxide 25 mmol/L (21-32) 08/31/16 05:35 Anion Gap 7 (8-16) L 08/31/16 05:35 BUN 10 mg/dL (7-18) 08/31/16 05:35 Creatinine 0.6 mg/dL (0.7-1.3) L 08/31/16 05:35 Creat Clearance w eGFR > 60 (>60) 08/29/16 03:15 Random Glucose 79 mg/dL (74-106) 08/31/16 05:35 Calcium 9.1 mg/dL (8.5-10.1) 08/31/16 05:35 Total Bilirubin 1.1 mg/dL (0.2-1.0) H 09/01/16 06:00 AST 89 U/L (15-37) H D 09/01/16 06:00 ALT 252 U/L (12-78) H 09/01/16 06:00 Alkaline Phosphatase 181 U/L (45-117) H 09/01/16 06:00 Total Protein 7.6 g/dl (6.4-8.2) 09/01/16 06:00 Albumin 3.6 g/dl (3.4-5.0) 09/01/16 06:00 Current Medications Generic Name Dose Route Start Last Admin Trade Name Freq PRN Reason Stop Dose Admin Ursodiol 300 mg 08/31/16 11:30 08/31/16 21:51 Actigal - PO 300 mg BID GILMER Administration Medication Instructions Recorded Apremilast [Otezla] 1 each PO BID 08/29/16 ASSESSMENT AND PLAN: 35 y/o man with H/O coloversicular fistulas, s/p partial colectomy and diverting colostomy, UTI , who presented with ABd pain , N/V . # s/p acute ABD pain with elevated LFTs trending down. Repeat level when in a week , follow up with in 2 weeks. Stay away from bread products. white flour, Fatty food fried food.Most likely passed the stone. ERCP is cancelled by # h/l Coloversicular fistula , s/p diverting colostomy and partial colectomy . Bx 07/29/16 showed no inflammation or malignancy. f/u as out pt. with Primary.
[2016-09-01 09:28] VITALS: BP 122/72; PULSE 81; TEMP 98.1
[2016-09-01] MEDS: URSODIOL 300 MG CAPSULE PO SCH (09:42)
--- NOTE | 2016-09-01 12:08 | DS ---
Physical Exam: SUBJECTIVE: Patient seen and examined. abdominal has resolved, he is tolerating diet well. He is stable for discharge and follow-up as outpatient. OBJECTIVE: Vital Signs Period Temp Pulse Resp BP Sys/Pascual Pulse Ox Last 24 Hr 97.8 F-98.8 F 55-82 18-18 112-136/62-84 97 PHYSICAL EXAM GENERAL: The patient is awake, alert, and fully oriented, in no acute distress. HEAD: Normal with no signs of trauma. EYES: extraocular movements intact, sclera anicteric, conjunctiva clear. ENT: Ears normal, nares patent, oropharynx clear without exudates, moist mucous membranes. NECK: Trachea midline, full range of motion, supple. LUNGS: Breath sounds equal, clear to auscultation bilaterally, no wheezes, no crackles, no accessory muscle use. HEART: Regular rate and rhythm, S1, S2 without murmur, rub or gallop. ABDOMEN: Soft, nontender, nondistended, normoactive bowel sounds, colostomy in RLQ functioning. EXTREMITIES: 2+ pulses, warm, well-perfused, no edema. NEUROLOGICAL: Normal speech, gait normal PSYCH: Normal mood, normal affect. SKIN: Warm, dry, normal turgor, multiple flat red macules of various sizes throughout body, few with white scaly plaques. LABS Laboratory Results - last 24 hr Laboratory Tests 08/29/16 08/30/16 08/31/16 03:15 06:00 05:35 Total Bilirubin 1.7 H D 2.0 H 1.0 D Direct Bilirubin 1.1 H 0.3 H D AST 302 H D 301 H 134 H D ALT 274 H D 392 H D 307 H D Alkaline Phosphatase 177 H D 204 H 190 H c-ANCA Proteinase 3 (PR3) p-ANCA Atypical p-ANCA Myeloperoxidase Ab S.cerevisiae IgG Ab S. cerevisiae IgG/IgA 09/01/16 09/01/16 06:00 06:00 Total Bilirubin 1.1 H Direct Bilirubin 0.3 H AST 89 H D ALT 252 H Alkaline Phosphatase 181 H c-ANCA Pending Proteinase 3 (PR3) Pending p-ANCA Pending Atypical p-ANCA Pending Myeloperoxidase Ab Pending S.cerevisiae IgG Ab Pending S. cerevisiae IgG/IgA Pending 08/30/16 09/01/16 06:00 06:00 Total Bilirubin 1.1 H Direct Bilirubin 0.3 H AST 89 H D ALT 252 H Alkaline Phosphatase 181 H Total Protein 7.6 Albumin 3.6 Hepatitis A IgM Ab Negative Hepatitis A Ab Total Positive H Hep Bs Antigen Negative Hep Bs Antibody Non reactive Hep B Core Total Ab Negative IMAGING: CT scan abdomen/pelvis with contrast: Right sided colostomy with no CT evidence of bowel obstruction. Decompression of the transverse, descending, and sigmoid colon as well as the anorectum. Again seen is pelvic inflammation with complex sigmoid to sigmoid and sigmoid rectume as well as sigmoid to bladder fistulous tracts, grossly unchanged since the prior exam. Shotty retroperitoneal and pericolonic subcentimeter lymph nodes likley reactive. Slightle nodular hepatic contour suggestive of an element of cirrhosis. Correlate with clinical history and LFTs. small sliding hiatal hernia with GE reflux of contrast. small amount of gallbladder sludge with no CT evidence og cholecystitis. subcentimeter too small characterize renal hypodensities. HIDA: There is normal homogeneous perfusion of the liver with no evidence of focal lesion. Extraction of tracer from the blood pool by the liver parenchyma is normal. Filling of the gallbladder excludes acute cystic duct obstruction. Ultrasound:Cholestasis with no sonographic evidence of acute cholecystitis. Hepatosplenomegaly and diffuse fatty infiltration of the liver. Liver is heterogenous in texture suspicious for diffuse fatty infiltration. NO discrete intrahepatic masses are identified. MRCP:Cholelithiasis with no MRCP evidence of cholecytitis. no definite choledocholithiases is seen. Minimal irregularity seen in the distal CBD which could be secondary to respiration motion however very tiny stone cannot be completely excluded. No CBD or intrahepatic biliary ductal dilatation seen. Mild nodular hepatic contour with loss of hepatic signal on out of phase imaging suggestice of fatty infiltration or hepatocellular disease with questionable element of early cirrhosis. 2.2cm right hepatic lobe hemangioma. subcentimeter renal cysts. Few prominent ebony hepatic and lesser sac lymph nodes measuring up to 1.5cm could be reactive to the hepatocellular/billiary process described above. Chest Xray: negative for infiltrate, effusion, CHf or pna HOSPITAL COURSE: Date of Admission:08/29/16 - Date of Discharge: 09/01/16 35 yr old man with psoriasis and extensive bowel fistulas s/p diverting colostomy presents with abdominal pain and vomiting for one day admitted for further evaluation and w/u of elevated transaminitis. Transaminitis was likely from choledocolithiasis in the setting of gallstones and abdominal pain. Hepatitis panel was ordered given nodular fatty liver, results listed above. No cholecystitis was seen on CT scan, no dilation of common bile duct appreciated in ultrasound or MRCP. No surgical intervention was required at this time. Repeat labs showed further downtrend of liver function enzymes and given improved abdominal pain, no further procedures and testing were needed. Patient sushil passed the stone. Pain resolved, he tolerated diet well and was stable for follow-up as outpatient. Vital signs remained stable during stay and colostomy maintained function. He was started on Actigall 300mg po BID for two weeks until outpatient follow-up with Dr. Maki. Recommended follow-up with , Dr. Herrmann and Dr. Maki. - Recommedation from Dr. Herrmann: Patient needs completion colonoscopy and cystoscopy prior to colon resection. Will add cholecystectomy at the time of above planned surgery. - follow-up labs for evaluation of the cause bowel fistulas, pending labs listed above. Minutes to complete discharge: 40 Discharge Summary Reason For Visit: ABD PAIN,GALLSTONES,TRANSIMINITIS Current Active Problems Abdominal pain (Acute) Gallstones (Acute) Transaminitis (Acute) Condition: Stable - Instructions Diet, Activity, Other Instructions: You have gallstones that caused your abdominal pain. Your liver function enzymes have improved and follow-up as outpatient with . Avoid fried and fatty food, follow a healthy diet with plenty of water. Stay away from white flour, bread products. Take Actigall twice daily for two weeks until you see Dr. Maki in his office. Follow-up with Dr. Keenan, your pcp regarding restarting the Otezla for your psoriasis and for your liver. Follow-up with as per your usual outpatient schedule regarding your colostomy. If your abdominal pain returns, your develop chest pain, bloody stool, vomiting or you develop any new symptoms return to the hospital. Referrals: Wes Alexander MD [Primary Care Provider] - David Herrmann MD [Staff Physician] - Alejandro Maki MD [Staff Physician] - 2 Weeks Disposition: HOME - Home Medications Comprehensive Discharge Medication List: Ambulatory Orders Apremilast [Otezla] 1 each PO BID 08/29/16 Ursodiol [Actigal -] 300 mg PO BID #30 capsule 09/01/16 This patient is new to me today: No Emergency Visit: No Critical Care patient: No - Discharge Referral Referred to [facility] No
[2016-09-06 00:10] LABS: C-ANCA <1:20 titer (Neg:<1:20); MYELOPEROXIDASE ANTIBODY <9.0 U/mL (0.0-9.0); P-ANCA <1:20 titer (Neg:<1:20); PROTEINASE-3 ANTIBODY <3.5 U/mL (0.0-3.5)
== END 2016-09-01 13:29 | disposition home or self-care (01) ==
LOC: JER 01:41 → JERBED 10:46 → J7W 13:24
PROVIDERS: ADMIT Internal Medicine; ATTEND Internal Medicine
DX: K80.80 Other cholelithiasis without obstruction (principal); R74.0 Nonspecific elevation of levels of transaminase and lactic acid dehydrogenase [LDH]; L40.9 Psoriasis, unspecified; N32.1 Vesicointestinal fistula
CPT/HCPCS: 36415; 71020-TC; 74177-TC; 74182-TC; 76705-TC; 78226-TC; 80048; 80053; 80076; 81003; 82150; 83520; 83690; 85025; 85610; 86256; 86671; 86704; 86706; 86708; 87340; 93005; 93010; 99283-25; A9537

== ENCOUNTER 2022-12-17 18:05 | Emergency (ER) | payer OTHER ==
[2022-12-17 18:13] VITALS: BP 125/75; PULSE 84; RESP 19; TEMP 98.6; BMI 50.1
[2022-12-17] MEDS ORDERED: METHOCARBAMOL 500 MG TABLET PO ONE (19:01)
[2022-12-17] MEDS ORDERED: LIDOCAINE 5% TOPICAL PATCH TP ONE (19:01)
[2022-12-17] MEDS ORDERED: KETOROLAC TROMETHAMINE 30 MG/1 ML VIAL IM ONE (19:01)
[2022-12-17] MEDS ORDERED: KETOROLAC TROMETHAMINE 30 MG/1 ML VIAL ONE (19:03)
[2022-12-17] MEDS ORDERED: LIDOCAINE 5% TOPICAL PATCH ONE (19:03)
[2022-12-17] MEDS ORDERED: METHOCARBAMOL 500 MG TABLET ONE (19:03)
== END 2022-12-17 19:57 | disposition home or self-care (01) ==
LOC: JERFT 18:05
PROC: 3E0233Z Introduction of Anti-inflammatory into Muscle, Percutaneous Approach (ICD-10-PCS; principal; 2022-12-17)
DX: M54.50 Low back pain, unspecified (principal); X50.0XXA Overexertion from strenuous movement or load, initial encounter
CPT/HCPCS: 99284-25

== ENCOUNTER 2022-12-18 15:13 | Emergency (ER) | payer OTHER ==
[2022-12-18 15:17] VITALS: BP 132/57; PULSE 86; RESP 18; TEMP 98.2; BMI 50.1
[2022-12-18] MEDS ORDERED: ACETAMINOPHEN 500 MG TABLET (FP) PO ONE (16:13)
[2022-12-18] MEDS ORDERED: ACETAMINOPHEN 500 MG TABLET (FP) ONE (16:15)
[2022-12-18] MEDS ORDERED: KETOROLAC TROMETHAMINE 30 MG/1 ML VIAL IM ONE (17:36)
[2022-12-18] MEDS ORDERED: KETOROLAC TROMETHAMINE 30 MG/1 ML VIAL ONE (17:38)
== END 2022-12-18 18:46 | disposition home or self-care (01) ==
LOC: JERFT 15:13 → JER 15:13 → JERFT 18:46
PROC: 3E0333Z Introduction of Anti-inflammatory into Peripheral Vein, Percutaneous Approach (ICD-10-PCS; principal; 2022-12-18)
DX: M79.604 Pain in right leg (principal)
CPT/HCPCS: 93971-TC; 99284-25